=== PATIENT | male | born 1965 | race American Indian/Alaskan Native ===

== ENCOUNTER 2017-10-10 06:44 | Day surgery (SDC) | payer BC ==
--- NOTE | 2017-10-10 09:38 | Short Stay Summary ---
Short Stay Documentation Date of service: 10/10/17 - History H&P: obtained from office - Allergies and Medications Current Medications: Allergies No Known Allergies Allergy (Unverified 10/10/17 06:44) - Physical exam General appearance: no acute distress Integumentary: no rash HEENT: Atraumatic Lungs: Clear to auscultation Breasts: deferred Heart: Regular rate Gastrointestinal: normal Male Genitourinary: deferred Female Genitourinary: deferred Rectal Exam: deferred Extremities: no ischemia Neurological: Normal gait - Brief post op/procedure progress note Date of procedure: 10/10/17 Pre-op diagnosis: AFIB Post-op diagnosis: same Procedure: NONE Anesthesia: none Findings: Patient converted spontaneously to NSR Surgeon: AMOS HEWITT Estimated blood loss: none Pathology: none Condition: stable - Hospital course Hospital course: No cardioversion performed Patient spontaneously converted into SR - Disposition Condition at discharge: Good Disposition: DC-01 TO HOME OR SELFCARE Short Stay Discharge Plan Activity: advance as tolerated Weight Bearing Status: Weight Bear as Tolerated Diet: low salt Follow up with: BAUTISTA REDDY MD [Primary Care Provider] - 7 Days
== END 2017-10-10 08:25 | disposition home or self-care (01) ==
LOC: CATHLABREC 06:44 → EDSTATUS 07:30 → CATHLABREC 08:25
PROVIDERS: ATTEND Internal Medicine
DX: I48.91 Unspecified atrial fibrillation (principal); I10 Essential (primary) hypertension; E78.00 Pure hypercholesterolemia, unspecified; Z79.899 Other long term (current) drug therapy; Z53.8 Procedure and treatment not carried out for other reasons
CPT/HCPCS: 93005; 93010